=== PATIENT | female | born 1940 | race Caucasian/White ===

== ENCOUNTER → 2016-03-21 | Outpatient (CLI) | payer OTHER, MEDICAID ==
[~2016-03-21] MED LIST: GADOBUTROL 10 ML VIAL IVP ONE
[2016-03-21 19:51] LABS: CREATININE 0.8 mg/dL (0.6-1.0); GLOMERULAR FILTRATION RATE > 60
--- NOTE | 2016-03-22 17:35 | MR ---
MRI of the Lumbar Spine (Without and With Contrast) Clinical Indications: Back pain. Previous lumbar fusion. M54.5. COMPARISON: None available. Technique: Sagittal and axial T1 and T2 MR sequences of the lumbar spine without contrast. Axial imag ing from T10-S1. Postcontrast sagittal and axial T1-weighted images with the uneventful intravenous a dministration of 8.5 mL of Gadavist also performed. Metal protocol utilized. Findings: Susceptibility artifact due to bilateral L2 and L3 transpedicular screws markedly limits t he study with the central canal, neural foramina, and disc spaces not well visualized from the L1-L2 through the L2-L3 levels. Disc herniations or stenosis at these regions cannot be excluded. Conus med ullaris is obscured by the metallic artifact but appears to end above the L2-L3 level. T9-T10: Moderate degenerative disc disease without central canal stenosis or cord compression. T10-T11: Moderate degenerative disc disease and moderate bilateral facet arthropathy with a left para median disc herniation, protrusion, resulting in mild central canal stenosis and huvt-km-ivztrkoy chase ateral neural foraminal stenosis. T11-T12: Moderate degenerative disc disease with circumferential disc bulge and osteophytes and moder ate bilateral facet arthropathy resulting in mild central canal stenosis and epye-wj-twxorbkk bilater al neural foraminal stenosis. T12-L1: Severe degenerative disc disease with severe disc space narrowing, circumferential disc bulge and osteophytes resulting in mild central canal stenosis without neural foraminal stenosis. L1-L2: Metallic artifact obscures the central canal and neural foramina at this level. L2-L3: Bilateral L2 and L3 transpedicular screws with metallic artifact obscuring the L2-L3 central c anal and neural foraminal region. L3-L4: Partial visualization demonstrates no evidence of definite central canal stenosis. However the neural foramina are not well visualized. L4-L5: Previous posterior laminectomies with mild grade 1 anterolisthesis resulting in zcqa-dj-uaojfd te right neural foraminal stenosis without central canal stenosis or left neural foraminal stenosis. L5-S1: Moderate degenerative disc disease and mild bilateral facet arthropathy without central canal stenosis or neural foraminal stenosis. Limited post contrast images demonstrate no definite evidence of discitis or osteomyelitis. Impression: 1. Metallic susceptibility artifact from the transpedicular screws at the L2-L3 level markedly limits evaluation of the central canal and neural foramina from the L1 through the L3 spinal canal and neur al foraminal regions. 2. Multilevel moderate degenerative disc disease in the lower thoracic spine from T9-T10 through T12- L1 resulting in mild central canal stenosis and mumm-pd-pwgwpoto bilateral neural foraminal stenosis as described above. 3. L4-L5 grade 1 anterolisthesis resulting in ltec-uo-vkhsyxio right neural foraminal stenosis withou t central canal stenosis. 4. Consider additional imaging with CT myelogram if clinically indicated. Please see findings at specific disc levels.
== END ==
LOC: FIMAGING 18:32
PROVIDERS: ATTEND Physician Assistant
DX: M43.16 Spondylolisthesis, lumbar region (principal); M51.34 Other intervertebral disc degeneration, thoracic region; M48.06 Spinal stenosis, lumbar region; M48.04 Spinal stenosis, thoracic region; Z98.1 Arthrodesis status
CPT/HCPCS: 72158; A9585

== ENCOUNTER 2016-08-28 09:46 | Day surgery (SDC) | payer OTHER, MEDICAID ==
[2016-08-28] MEDS ORDERED: LR 1,000 ML IV ONE (10:59)
--- NOTE | 2016-08-28 11:11 | PDGENHP ---
History & Physical Chief Complaint: hx of polyps History of Present Illness: Due for surveillance colonoscopy Relevant Physical Exam: GEN: NAD. Cardiac: RRR. Lungs: CTA B. Abd: soft, nt, nd
--- NOTE | 2016-08-28 12:01 | PDANEPAE ---
ANE History of Present Illness 75 year old female with family history of colon cancer here for screening colonoscopy. ANE Past Medical History Past Medical History: HTN - meds x20+ yrs DM type 2 - oral meds x10 yrs mood d/o on Zoloft remote h/o GERD - happens when heavier essential tremor psoriatic arthritis osteoarthritis - Cardiovascular History Hx Hypertension: Yes Hx Arrhythmias: No Hx Chest Pain: No Hx Coronary Artery / Peripheral Vascular Disease: No Hx CHF / Valvular Disease: No Hx Palpitations: No - Pulmonary History Hx COPD: No Hx Asthma/Reactive Airway Disease: No Hx Recent Upper Respiratory Infection: No Hx Oxygen in Use at Home: No - Neurologic History Hx Cerebrovascular Accident: No Hx Seizures: No Hx Dementia: No - Endocrine History Hx Diabetes: Yes - Liver History Hx Hepatic Disorders: Yes - Neurological & Psychiatric Hx Hx Neurological and Psychiatric Disorders: Yes - Cancer History Hx Cancer: No - Congenital Disorder History Hx Congenital Disorders: No - GI History Hx Gastrointestinal Disorders: No - Chronic Pain History Chronic Pain: Yes (SPINAL PAIN, BACK & HIPS) ANE Review of Systems Review of Systems: 3 weeks ago had viral URI - throat pain, no cough, took amoxicillin - Exercise capacity METS (RN): 4 METS - Systems Cardiac: Reports: no symptoms Respiratory: Reports: no symptoms ANE Patient History - Allergies Allergies/Adverse Reactions: atorvastatin [From Lipitor] Allergy (Verified 08/27/16 14:21) codeine Allergy (Verified 08/27/16 14:21) - Home Medications Home Medications: Aspirin 08/27/16 [Last Taken Unknown] Clonazepam 08/27/16 [Last Taken Unknown] Cosentyx Pen 08/27/16 [Last Taken Unknown] Gabapentin 08/27/16 [Last Taken Unknown] Glipizide 08/27/16 [Last Taken Unknown] Herbals/Supplements -Info Only 08/27/16 [Last Taken Unknown] Janumet Xr 100-1,000 mg Tablet 08/27/16 [Last Taken Unknown] Jardiance 08/27/16 [Last Taken Unknown] Losartan Potassium 08/27/16 [Last Taken Unknown] [place] 5/325 (*) 08/27/16 [Last Taken Unknown] Pravastatin Sodium 08/27/16 [Last Taken Unknown] Primidone 08/27/16 [Last Taken Unknown] Propranolol HCl 08/27/16 [Last Taken Unknown] Sertraline HCl 08/27/16 [Last Taken Unknown] Zoloft 50mg (*) 08/27/16 [Last Taken Unknown] - NPO status NPO Since - Liquids (Date): 08/28/16 NPO Since - Liquids (Time): 12:00 NPO Since - Solids (Date): 08/27/16 NPO Since - Solids (Time): 09:00 - Anes Hx Hx Anesthesia Complications (with details): difficulty breathing in PACU after one surgery. - Smoking Hx Smoking Status: Former smoker (quit 7 years ago.) Marijuana use: No - Alcohol Use Alcohol Use: None - Family Anes Hx Family Hx Anesthesia Complications: NEG ANE Labs/Vital Signs - Vital Signs Blood Pressure: 128/62 Heart Rate: 62 Respiratory Rate: 18 O2 Sat (%): 89 Height: 152.4 cm Weight: 83.915 kg ANE Physical Exam - Airway Mallampati Score: Class 1 Mouth exam: normal dental/mouth exam - Pulmonary Pulmonary: no respiratory distress, clear to auscultation - Cardiovascular Cardiovascular: regular rate and rhythym - ASA Status ASA Status: III ANE Anesthesia Plan Anesthesia Plan: GA with mask
[2016-08-28] MEDS ORDERED: fentaNYL 100 MCG/2 ML INJ ONE (12:38)
[2016-08-28] MEDS ORDERED: PROPOFOL/EMULSION 500 MG/50 ML BOTTLE IV ONE (12:38)
[2016-08-28] MEDS ORDERED: LIDOCAINE 2% 5 ML SDV ONE (12:38)
[2016-08-28 12:48] LABS: ANION GAP 15 mEq/L (8-16); CALCIUM 10.2 mg/dL (8.5-10.4); CARBON DIOXIDE 22 mEq/l (22-31); CHLORIDE 103 mEq/L (97-110); CREATININE 0.7 mg/dL (0.6-1.0); GLOMERULAR FILTRATION RATE > 60; GLUCOSE 146 mg/dL (70-100); POTASSIUM 4.2 mEq/L (3.5-5.2); SODIUM 140 mEq/L (134-144)
[2016-08-28] MEDS ORDERED: NALOXONE HCL 0.4 MG/ML INJ IVP PRN (13:01)
[2016-08-28] MEDS ORDERED: LR 500 ML IV PRN (13:01)
[2016-08-28] MEDS ORDERED: ONDANSETRON 4 MG/2 ML VIAL IVP PRN (13:01)
[2016-08-28] MEDS ORDERED: fentaNYL 100 MCG/2 ML INJ IVP PRN (13:01)
[2016-08-28] MEDS ORDERED: ACETAMINOPHEN 500 MG TAB PO PRN (13:01)
--- NOTE | 2016-08-28 13:24 | POSTANESTH ---
Post Anesthetic Evaluation Cardiovascular Status: Normal, Stable Respiratory Status: Normal, Stable Level of Consciousness/Mental Status: Can Participate in Eval, Mildly Sleepy, Arousable Pain Control: Adequate, Prn Tx Ordered Nausea/Vomiting Control: Adequate, Prn Tx Ordered Complications Possibly Related to Anesthesia: None Noted (Pt breathing well. Feeling comfortable.)
[2016-08-28 13:52] VITALS: TEMP 98.1
[2016-08-28 14:40] VITALS: BP 104/57; PULSE 57; RESP 16; O2SAT 92
--- NOTE | 2016-08-28 21:22 | GPN ---
[f rep st] PROCEDURE NOTE PREPROCEDURE DIAGNOSIS: History of colon polyps. POSTPROCEDURE DIAGNOSIS: Normal colonoscopy. PROCEDURE: Colonoscopy. ANESTHESIA: Monitored anesthesia care. INDICATIONS: The patient is a 75-year-old female with a history of multiple colon polyps in the pas t, who is here for a 3 year followup for colonoscopy. She has a history of polyps. The risks and b enefits of the procedure were discussed with the patient. Consent obtained. Risks include, but not limited to, bleeding, perforation, and sedation. The patient is ASA class 3. DESCRIPTION OF PROCEDURE: The adult colonoscope was advanced into the terminal ileum, which appears normal. The ileocecal valve, appendiceal orifice, cecum, ascending colon, hepatic flexure, transve rse colon, splenic flexure, descending colon, sigmoid colon, and rectum were normal, including retro flexed views in the rectum. She has no polyps. IMPRESSION: Normal colonoscopy. RECOMMENDATIONS: 1. Discharge home with escort. 2. Advance diet as tolerated. 3. Given her age and comorbidities, I am not recommending a repeat colonoscopy. 4. Thank you for allowing me to participate in the care of this patient. Please do not hesitate to call with questions. /[id number]/MODL
== END 2016-08-28 15:02 | disposition home or self-care (01) ==
LOC: FSGY 09:46
PROVIDERS: ATTEND Internal Medicine Gastroenterology
PROC: 0DJD8ZZ Inspection of Lower Intestinal Tract, Via Natural or Artificial Opening Endoscopic (ICD-10-PCS; principal; 2016-08-28 11:30)
DX: Z09 Encounter for follow-up examination after completed treatment for conditions other than malignant neoplasm (principal); Z86.010 Personal history of colon polyps
CPT/HCPCS: J2704; J3010